=== PATIENT | male | born 1995 | race Caucasian/White ===

== ENCOUNTER → 2021-02-28 | Outpatient (CLI) | payer BC | END | disposition home or self-care (01) | LOC: LABWHC1 15:38 | PROVIDERS: ATTEND Emergency Medicine | DX: Z20.822 Contact with and (suspected) exposure to COVID-19 (principal) | CPT/HCPCS: U0003; C9803 ==

== ENCOUNTER → 2023-02-18 | Outpatient (CLI) | payer OTHER ==
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
== END ==
LOC: SLEEP 14:38
PROVIDERS: ATTEND Internal Medicine Critical Care Medicine
DX: G47.419 Narcolepsy without cataplexy (principal); F41.9 Anxiety disorder, unspecified; F32.A Depression, unspecified; F90.9 Attention-deficit hyperactivity disorder, unspecified type; F84.5 Asperger's syndrome
CPT/HCPCS: 99211

== ENCOUNTER 2023-02-27 16:20 | Emergency (ER) | payer OTHER ==
--- NOTE | 2023-02-27 16:45 | XR ---
EXAMINATION TYPE: XR chest 2V DATE OF EXAM: 02/27/2023 COMPARISON: NONE HISTORY: Chest pain TECHNIQUE: Frontal and lateral views of the chest are obtained. FINDINGS: There is no focal air space opacity. No evidence for pneumothorax. No pleural effusion. The cardiac silhouette size is within normal limits. The osseous structures are grossly intact. IMPRESSION: 1. No acute cardiopulmonary process.
[2023-02-27 18:31] VITALS: BP 145/104
--- NOTE | 2023-02-27 18:43 | ED ---
General Adult HPI - General Chief complaint: Shortness of Breath Stated complaint: SOB Time Seen by Provider: 02/27/23 18:00 Source: patient, RN notes reviewed, old records reviewed Mode of arrival: ambulatory Limitations: no limitations - History of Present Illness Initial comments: This is a 27-year-old male who presents emergency part in stating he has some congestion in his nose is not sure if its chest congestion maybe he has a deviated septum. Patient states she's also at times had quite a bit of anxiety and then he has some difficulty breathing. Patient states at home he was satting 88% however upon arrival here was oxygenating at 98%. Patient states he understands this could all be anxiety because he does have quite a bit of anxiety. Patient states he also takes Adderall for narcolepsy. 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 Patient states he has had a large hard time sleeping through the night. - Related Data Previous Rx's Medication Instructions Recorded Fluticasone Nasal [place] [Flonase 2 spray EA NOSTRIL DAILY #16 gm 02/27/23 Nasal [place]] Allergies Allergy/AdvReac Type Severity Reaction Status Date / Time No Known Allergies Allergy Verified 02/27/23 16:36 Review of Systems ROS Statement: Those systems with pertinent positive or pertinent negative responses have been documented in the HPI. ROS Other: All systems not noted in ROS Statement are negative. Past Medical History Additional Past Medical History / Comment(s): Narcolepsy, chronic anxiety, chronic depression, autism with possible Asperger, ADHD History of Any Multi-Drug Resistant Organisms: None Reported Past Surgical History: Hernia Repair Past Psychological History: Anxiety, Depression Smoking Status: Never smoker Past Alcohol Use History: None Reported Past Drug Use History: None Reported General Exam - General Exam Comments Initial Comments: GENERAL: Patient is well-developed and well-nourished. Patient is nontoxic and well- hydrated and is in no acute distress. ENT: Neck is soft and supple. No significant lymphadenopathy is noted. Oropharynx is clear. Moist mucous membranes. Neck has full range of motion without eliciting any pain. EYES: The sclera were anicteric and conjunctiva were pink and moist. Extraocular movements were intact and pupils were equal round and reactive to light. Eyelids were unremarkable. PULMONARY: Unlabored respirations. Good breath sounds bilaterally. No audible rales rhonchi or wheezing was noted. CARDIOVASCULAR: There is a regular rate and rhythm without any murmurs gallops or rubs. ABDOMEN: Soft and nontender with normal bowel sounds. SKIN: Skin is clear with no lesions or rashes and otherwise unremarkable. NEUROLOGIC: Patient is alert and oriented x3. Cranial nerves II through XII are grossly intact. Motor and sensory are also intact. Normal speech, volume and content. Symmetrical smile. MUSCULOSKELETAL: Normal extremities with adequate strength and full range of motion. LYMPHATICS: No significant lymphadenopathy is noted PSYCHIATRIC: Normal psychiatric evaluation. Limitations: no limitations Course Vital Signs 02/27/23 02/27/23 16:30 18:29 Temperature 98.6 F Pulse Rate 88 84 Respiratory 20 22 Rate Blood Pressure 158/96 145/104 O2 Sat by Pulse 97 96 Oximetry Medical Decision Making - Medical Decision Making Was pt. sent in by a medical professional or institution (, PA, [facility], urgent care, hospital, or custodial...) When possible be specific @ -No Did you speak to anyone other than the patient for history (EMS, parent, family, police, friend...)? What history was obtained from this source @ -No Did you review nursing and triage notes (agree or disagree)? Why? @ -I reviewed and agree with nursing and triage notes Were old charts reviewed (outside hosp., previous admission, EMS record, old EKG, old radiological studies, urgent care reports/EKG's, custodial records)? Report findings @ -No old charts were reviewed Differential Diagnosis (chest pain, altered mental status, abdominal pain women, abdominal pain men, vaginal bleeding, weakness, fever, dyspnea, syncope, headache, dizziness, GI bleed, back pain, seizure, CVA, palpatations, mental health, musculoskeletal)? @ -Differential Dyspnea: Coronary syndrome, arrhythmia, tamponade, asthma, COPD, pulmonary embolism, pneumonia, pneumothorax, pulmonary effusion, anaphylaxis, diabetic ketoacidosis, flailed chest, pulmonary contusion, diaphragmatic rupture, anemia, neuromuscular, this is not meant to be an all-inclusive list. EKG interpreted by me (3pts min.). @ -As above X-rays interpreted by me (1pt min.). @ -Chest x-ray was interpreted by myself. X-ray shows no acute abnormality. CT interpreted by me (1pt min.). @ -None done U/S interpreted by me (1pt. min.). @ -None done What testing was considered but not performed or refused? (CT, X-rays, U/S, labs)? Why? @ -None What meds were considered but not given or refused? Why? @ -None Did you discuss the management of the patient with other professionals (professionals i.e. DrAlbaro, PA, [facility], lab, RT, psych nurse, professor of social work, pullman clerk, teacher, probation officer, director case)? Give summary @ -No Was smoking cessation discussed for >3mins.? @ -No Was critical care preformed (if so, how long)? @ -No Were there social determinants of health that impacted care today? How? (Homelessness, low income, unemployed, alcoholism, drug addiction, transportation, low edu. Level, literacy, decrease access to med. care, longterm, rehab)? @ -No Was there de-escalation of care discussed even if they declined (Discuss DNR or withdrawal of care, Hospice)? DNR status @ -No What co-morbidities impacted this encounter? (DM, HTN, Smoking, COPD, CAD, Cancer, CVA, ARF, Chemo, Hep., AIDS, mental health diagnosis, sleep apnea, morbid obesity)? @ -None Was patient admitted / discharged? Hospital course, mention meds given and route, prescriptions, significant lab abnormalities, going to OR and other pertinent info. @ -Oxygenation was 98% arrival he was not tachycardic he was in no distress and he remained that way throughout his ED course. I had the pulseless checked again he was actually just fine I believe the patient is under a lot of stress and has anxiety. Patient states he is congested so I will give the patient Flonase Undiagnosed new problem with uncertain prognosis? @ -No Drug Therapy requiring intensive monitoring for toxicity (Heparin, Nitro, Insulin, Cardizem)? @ -No Were any procedures done? @ -No Diagnosis/symptom? @ -Anxiety Acute, or Chronic, or Acute on Chronic? @ -Acute Uncomplicated (without systemic symptoms) or Complicated (systemic symptoms)? @ -default Side effects of treatment? @ -No Exacerbation, Progression, or Severe Exacerbation? @ -No Poses a threat to life or bodily function? How? (Chest pain, [place], [place], pneumonia, PE, COPD, DKA, ARF, appy, cholecystitis, CVA, Diverticulitis, Homicidal, Suicidal, threat to staff... and all critical care pts) @ -No Diagnosis/symptom? @ -Nasal congestion Acute, or Chronic, or Acute on Chronic? @ -Acute Uncomplicated (without systemic symptoms) or Complicated (systemic symptoms)? @ -Uncomplicated Side effects of treatment? @ -none Exacerbation, Progression, or Severe Exacerbation] @ -no Poses a threat to life or bodily function? @ -no Disposition Clinical Impression: Nasal congestion, Anxiety Disposition: HOME SELF-CARE Condition: Good Instructions (If sedation given, give patient instructions): Allergic Rhinitis (ED), Anxiety (ED) Prescriptions: Fluticasone Nasal [place] [Flonase Nasal [place]] 2 spray EA NOSTRIL DAILY #16 gm Is patient prescribed a controlled substance at d/c from ED?: No Referrals: Gina Dunbar MD [Primary Care Provider] - 1-2 days Time of Disposition: 18:44
[2023-02-27 20:08] VITALS: PULSE 78; RESP 16; TEMP 98.7
== END 2023-02-27 20:08 | disposition home or self-care (01) ==
LOC: EC 16:20
DX: F41.9 Anxiety disorder, unspecified (principal); R09.81 Nasal congestion
CPT/HCPCS: 71046; 99284

== ENCOUNTER 2023-05-07 19:13 | Outpatient (CLI) | payer OTHER ==
--- NOTE | 2023-05-21 22:50 | P.PCN ---
Date of Procedure: 05/07/23 Operative Findings: Polysomnography report Date of service is 05/07/2023 Pertinent history Sleep onset insomnia, essentially exacerbated by excess anxiety Narcolepsy type II. Based on reported history, the patient may have an underlying history of narcolepsy. He has undergone sleep evaluation through outside sleep centers and he has been given diagnosis of narcolepsy approximately 10 years ago. Currently is on a combination of venlafaxine, bupropion and Adderall. No history of any cataplexy or hallucinations. Nevertheless, the patient has sleep paralysis. Snoring and possible obstructive sleep apnea Chronic anxiety/depression Asperger -/autism ADHD Pertinent physical findings The patient's weight is 233 pounds with a body mass index of 35.4 Technical description The patient was studied using a standard complex polysomnography protocol that included recording of the 2 EKG, Central, occipital and frontal EEG, right and left outer canthus EOG, submental EMG, right and left anterior tibialis EMG, respiratory airflow by thermocouple and or pressure/flow transducer, respiratory efforts by abdominal and thoracic PVDF belts, oxygen saturation by cable oximetry. Position by observation synchronized the PSG. 4 children 12 and selected patients, ETCO2 may be added to the recording. Equipment used: Tanium. Sleep architecture The total time in bed was 422.5 minutes. The patient had a total sleep time of 388.5 minutes. The overall sleep efficiency was 92.0%. Latency to sleep onset was 12.5 minutes. Latency to REM sleep was 82.5 minutes. The sleep architecture was catheterized by 10.6% stage I, 49.8% stage II, 5.1% stage III and 34.5% REM sleep Sleep continuity summary The patient had total 110 arousals with an arousal index of 17.4 Respiratory analysis The respiratory analysis showed a total of 142 obstructive events and the patient had a total of 2 obstructive apneas, 0 mixed apneas, 2 central apneas and a total of 125 obstructive hypopneas. The overall apnea popping index was 19.9. Oxygenation analysis this patient had mild nocturnal oxygen desaturation, and the patient's minimum pulse ox was 80% during REM sleep. The patient spent approximately 10 minutes of the sleep time with pulse ox of 89%. Cardiac summary Average heart rate was 73 with a minimum heart rate of 66 and a maximum heart rate of 78 Limb movement summary The patient had total 185 periodic limb movements activity within an index of 28.6 and there were only 9 periodic limb movement with activity with arousal and the index was 1.4 Assessment No evidence of sleep onset insomnia. The patient was able to generate sleep and the latest to sleep onset was 12.5 minutes. Patient also has adequate sleep efficiency of 92%. Moderate to severe obstructive sleep apnea and the respiratory events were mainly in the form of obstructive hypopneas, AHI 19 Narcolepsy type II based on history. The patient has been on a combination of treatment including Adderall on an outpatient basis. Noted the patient had a increased REM sleep of 34.5% and a short REM sleep latency of 82.5 minutes. Snoring Chronic anxiety/depression Asperger/autism ADHD Periodic limb movements activity, not causing arousals Plan This patient has a combination of disorders including a moderate severe obstructive sleep apnea and narcolepsy type II We'll continue treatment of narcolepsy as prescribed earlier The patient is to lose weight The patient has obstructive sleep apnea which is moderately severe and obviously the patient will benefit from CPAP therapy. The patient will be asked to come back to sleep Center to undergo a CPAP titration. Optimizing the patient's NASRA and narcolepsy would improve the patient's chronic fatigue and sleepiness. We'll continue to follow.
== END 2023-05-08 23:59 | disposition home or self-care (01) ==
LOC: 3 N SLEEP 19:13 → EDSTATUS 19:20 → 3 N SLEEP 05-08 09:00
PROVIDERS: ATTEND Internal Medicine Critical Care Medicine
DX: G47.00 Insomnia, unspecified (principal); F90.9 Attention-deficit hyperactivity disorder, unspecified type; F84.0 Autistic disorder; F32.A Depression, unspecified; F41.9 Anxiety disorder, unspecified; G47.61 Periodic limb movement disorder; R06.83 Snoring; G47.419 Narcolepsy without cataplexy; R53.82 Chronic fatigue, unspecified
CPT/HCPCS: 95810